=== PATIENT | female | born 1955 | race Caucasian/White ===

== ENCOUNTER → 2020-01-20 14:41 | Outpatient (BNVA) | payer OTHER, SELFPAY | PROVIDERS: PCP Internal Medicine; Visit Provider Internal Medicine Cardiovascular Disease | DX: Z76.89 Persons encountering health services in other specified circumstances (principal) ==

== ENCOUNTER 2020-01-23 06:00 | Outpatient (REF) | payer OTHER, SELFPAY ==
[2020-01-23 11:32] LABS: Hematocrit 40.7 % (37-47); Hemoglobin 12.5 g/dl (12.0-16.0); Mean Corpuscular HGB Conc 30.7 g/dl (31.0-35.0); Mean Corpuscular Hemoglobin 26.4 pg (27.0-33.0); Mean Platelet Volume 10.1 fL (9.4-12.3); Platelet Count 339 X10*3/uL (160-400); Red Blood Count 4.73 X10*6/uL (4.20-5.50); Red Cell Distribution Width 14.6 % (11.0-16.0); White Blood Count 7.8 X10*3/uL (4.8-10.8)
[2020-01-23 12:09] LABS: Alanine Aminotransferase 12 U/L (0-31); Alkaline Phosphatase 97 U/L (39-117); Anion Gap 14 (12-20); Aspartate Amino Transferase 14 U/L (5-31); Bilirubin Total 0.8 mg/dL (0.0-1.0); Blood Urea Nitrogen 19 mg/dL (9-16); Calcium 8.9 mg/dL (8.4-10.2); Carbon Dioxide 32 mmol/L (22-29); Chloride 102 mmol/L (96-108); Estimated Glomerular Filt Rate > 60; Glucose Fasting 84 mg/dL (60-99); Potassium 4.5 mmol/l (3.3-5.1); Sodium 143 mmol/L (135-145); Total Protein 6.9 g/dL (6.5-8.0)
[2020-01-23 12:25] LABS: Free T4 (Free Thyroxine) 1.04 ng/dL (0.71-1.85); Thyroid Stimulating Hormone 2.13 uIU/mL (0.32-4.0)
[2020-01-23 12:26] LABS: Cholesterol 189 mg/dL; HDL Cholesterol 58 mg/dL; LDL Cholesterol Calculated 114 mg/dl; Triglycerides 89 mg/dL
== END 2020-01-23 06:01 | disposition home or self-care (01) ==
LOC: HO.HMGCLDS 06:00
PROVIDERS: PCP Internal Medicine; Referring Provider Internal Medicine; Visit Provider Internal Medicine Cardiovascular Disease
DX: Z00.00 Encounter for general adult medical examination without abnormal findings (principal); I48.20 Chronic atrial fibrillation, unspecified; I50.30 Unspecified diastolic (congestive) heart failure
CPT/HCPCS: 36415; 80053; 80061; 84439; 84443; 85027

== ENCOUNTER 2020-01-24 07:09 | Outpatient (REF) | payer OTHER, SELFPAY ==
[2020-01-24 07:57] LABS: B Type Natriuretic Peptide 248 pg/mL (<100)
[2020-01-24 08:00] LABS: Blood Urea Nitrogen 17 mg/dL (9-16); Estimated Glomerular Filt Rate > 60; Glucose Random 93 mg/dL (60-115)
[2020-01-24 08:16] LABS: Anion Gap 10 (12-20); Carbon Dioxide 34 mmol/L (22-29); Chloride 101 mmol/L (96-108); Potassium 4.4 mmol/l (3.3-5.1); Sodium 141 mmol/L (135-145)
== END 2020-01-24 07:10 | disposition home or self-care (01) ==
LOC: HO.LAB 07:09
PROVIDERS: PCP Internal Medicine; Visit Provider Internal Medicine Cardiovascular Disease
DX: I11.0 Hypertensive heart disease with heart failure (principal); I50.30 Unspecified diastolic (congestive) heart failure; I48.20 Chronic atrial fibrillation, unspecified
CPT/HCPCS: 80048; 83880